=== PATIENT | male | born 1960 | race Caucasian/White ===

== ENCOUNTER 2017-03-04 11:32 | Emergency (ER) | payer OTHER ==
[2017-03-04 11:33] VITALS: BMI 34.0
[2017-03-04 12:03] VITALS: BP 119/81; PULSE 78; RESP 16; TEMP 97.3; O2SAT 98
--- NOTE | 2017-03-04 12:11 | C.PDOC ---
History Of Present Illness 56 year old male presents to the ED for evaluation of right-sided dental pain which began around 3 days ago. Patient states he does not have a dentist. He denies fever, chills, difficulty with breathing or swallowing. Time Seen by Provider: 03/04/17 11:44 Chief Complaint (Nursing): Dental Pain History Per: Patient, Family History/Exam Limitations: no limitations Onset/Duration Of Symptoms: Days (3) Current Symptoms Are (Timing): Still Present Quality: Positive for: "Pain" Additional History Per: Patient Past Medical History Reviewed: Historical Data, Nursing Documentation, Vital Signs Vital Signs: Last Vital Signs Temp 97.3 F L 03/04/17 11:43 Pulse 78 03/04/17 11:43 Resp 16 03/04/17 11:43 BP 119/81 03/04/17 11:43 Pulse Ox 98 03/04/17 13:43 - Medical History PMH: HTN, Hypercholesterolemia Surgical History: No Surg Hx - [facility] Procedures APPLICATION OF SPLINT (06/01/14) Family History: States: Unknown Family Hx - Social History Hx Alcohol Use: No Hx Substance Use: No - Immunization History Hx Tetanus Toxoid Vaccination: No Hx Influenza Vaccination: No Hx Pneumococcal Vaccination: No Review Of Systems Constitutional: Negative for: Fever, Chills ENT: Positive for: Mouth Pain (right-sided dental pain ) Respiratory: Negative for: Cough, Shortness of Breath, Wheezing Physical Exam - Physical Exam Appears: Non-toxic, No Acute Distress Skin: Normal Color, Warm, Dry Head: Atraumatic, Normacephalic Eye(s): bilateral: Normal Inspection, EOMI Nose: Normal Oral Mucosa: Moist Tongue: No Swelling Lips: No Swelling Teeth: Caries (right mandibular 1st molar ), Tender To Palpation (right mandibular 1st molar with filling) Gingiva: Normal Appearing, No Erythema, No Swelling Throat: Normal, No Erythema, No Exudate Neck: Normal ROM, Supple Chest: Symmetrical Cardiovascular: Rhythm Regular Respiratory: Normal Breath Sounds Extremity: Normal ROM Neurological/Psych: Normal Speech, Normal Cognition Gait: Steady ED Course And Treatment O2 Sat by Pulse Oximetry: 98 (on RA) Pulse Ox Interpretation: Normal Progress Note: Lidocaine 2% Viscous PO administered. On reasessment, patient is resting comfortably, showing no signs of distress, and reports an improvement in his symptoms. Patient is stable for discharge and is advised to follow up with dental care within 1-3 days for further evalation. Reassessment Condition: Improved Disposition - Disposition Referrals: [facility] [Outside] Disposition: HOME/ ROUTINE Disposition Time: 12:09 Condition: GOOD Additional Instructions: Vaya a hendrix mdico o la clnica en 1-3 lopez sin falta, para mas evaluacin. Lewes los medicamentos philippe indicado. Volver a la hoang de emergencia en cualquier momento si los sntomas persisten o empeoran. Prescriptions: Amoxicillin 875 mg PO BID #14 tablet Benzocaine 7.5% [Orajel] 7.5 gel MM TID #1 tube Instructions: Toothache (ED) Forms: [facility] (Dutch) - Clinical Impression Clinical Impression: Toothache - PA / FOUNDATION ENG[employer] / Resident Statement MD/DO has reviewed & agrees with the documentation as recorded. - Scribe Statement The provider has reviewed the documentation as recorded by the Scribe (Jadyn Koch) All medical record entries made by the Scribe were at my direction and personally dictated by me. I have reviewed the chart and agree that the record accurately reflects my personal performance of the history, physical exam, medical decision making, and the department course for this patient. I have also personally directed, reviewed, and agree with the discharge instructions and disposition.
== END 2017-03-04 12:46 | disposition home or self-care (01) ==
LOC: C.ER 11:32
DX: K08.89 Other specified disorders of teeth and supporting structures (principal)

== ENCOUNTER 2017-05-31 08:42 | Day surgery (SDC) | payer OTHER ==
[2017-05-31 09:13] VITALS: BMI 32.5
[2017-05-31 10:59] LABS: MEAN CORPUSCULAR HEMOGLOBIN 32.6 pg (27.0-31.0); MEAN CORPUSCULAR HGB CONC 34.7 g/dL (33.0-37.0); MEAN PLATELET VOLUME 9.6 fL (7.2-11.7); RED CELL DISTRIBUTION WIDTH 12.8 % (11.5-14.5); WHITE BLOOD COUNT 7.2 K/uL (4.8-10.8)
[2017-05-31] MEDS ORDERED: Lactated Ringer's 500 ML IV ONE ×2 (11:14)
[2017-05-31 11:18] LABS: BLOOD UREA NITROGEN 10 mg/dL (9-20); CALCIUM 8.1 mg/dl (8.6-10.4); CARBON DIOXIDE 24 mmol/L (22-30); CHLORIDE 103 mmol/L (98-107); GFR AFRICAN-AMERICAN > 60; GLUCOSE,RANDOM 136 mg/dL (75-110); POTASSIUM 4.1 mmol/L (3.6-5.2); SODIUM 136 mmol/L (132-148)
[2017-05-31] MEDS ORDERED: Propofol 10 mg/ml Inj (20 ML) ONE (11:21)
--- NOTE | 2017-05-31 11:22 | CP.SDSHP ---
Same Day Surgery H & P - History Proposed Procedure: Emergency EGD Pre-Op Diagnosis: Epigastric pain associated with dark, tarry stools intermittently for 2 months - Previous Medical/Surgical History Endocrine/Metabolic: Diabetes, Obesity Comments: Patient with dark/tarry stools following intermittent episodes of pain. Given Prilosec by PCP two weeks ago with relief of pain. hgb-15 at that time. Concern is for possible bleeding ulcer that will heal if endoscopy is delayed at this time. Patient awoke with pain in left arm after sleeping on it but denies any chest pain, heaviness, SOB or palpitations. Reports pain better by shaking out arm and has no pain after two hours of observation. EKG shows no ischemic changes. Plan to procede with EGD and patient will see PCP or go to ER for recurrence of pain. Relatively low cardiac risk. Had prostate biopsy several weeks ago for high PSA. Case discussed extensively with Dr Hatfield and family aware of risk and wishes to procede with EGD. Previous Surgical History: Prostate bx - Allergies Allergies: Allergies No Known Allergies Allergy (Verified 05/31/17 09:12) - Physical Exam Vital Signs: Vital Signs 05/31/17 10:00 Temperature 97.4 F L Pulse Rate 68 Respiratory 19 Rate Blood Pressure 126/82 O2 Sat by Pulse 100 Oximetry Mental Status: Alert & Oriented x3 Neuro: WNL Heart: WNL Lungs: WNL GI: WNL - Impression Impression: melena. epigastric pain r/o PUD with bleeding Pt. Evaluated Today:Candidate for Anesthesia & Procedure: Yes - Date & Time Date: 05/31/17 Time: 11:22 Short Stay Discharge - Short Stay Discharge Admitting Diagnosis/Reason for Visit: EPIGASTRIC PAIN, HEARTBURN Disposition: HOME/ ROUTINE
[2017-05-31] MEDS ORDERED: Pantoprazole 40 mg EC Tab PO STA (11:24)
[2017-05-31 13:04] VITALS: O2SAT 100
[2017-05-31 13:10] VITALS: BP 125/79; PULSE 61; RESP 21; TEMP 97.9
--- NOTE | 2017-06-01 15:40 | CARD ---
APPROVED REPORT EKG Measurement Heart [id number] <Conclusion> Normal sinus rhythm Normal ECG
== END 2017-05-31 12:45 | disposition home or self-care (01) ==
LOC: C.ENDO 08:42
PROVIDERS: ATTEND Internal Medicine Gastroenterology
DX: K29.70 Gastritis, unspecified, without bleeding (principal); K21.0 Gastro-esophageal reflux disease with esophagitis; B96.81 Helicobacter pylori [H. pylori] as the cause of diseases classified elsewhere
CPT/HCPCS: 36415; 43239; 80048; 82550; 82553; 82948; 84484; 85027; 88305; J2704; J3010; J7120

== ENCOUNTER 2017-08-10 10:19 | Emergency (ER) | payer OTHER ==
[2017-08-10 10:19] VITALS: BMI 32.5
[2017-08-10 10:30] VITALS: RESP 18; O2SAT 99
[2017-08-10] MEDS ORDERED: Lidocaine 5% Patch TD STA (11:05)
[2017-08-10] MEDS ORDERED: Lidocaine 5% Patch TD ONE (11:14)
--- NOTE | 2017-08-10 11:40 | C.PDOC ---
History Of Present Illness 57yo male with history of diabetes, high cholesterol, presents to ED for evaluation of right sided headache, radiating to his neck and worsening over the past 2 weeks. Patient denies any trauma or injuries, recent heavy lifting. Of note, patient had right shoulder surgery 1 year ago and is complaining of pain to his right shoulder as well. Patient states he has not been taking any medication for his pain but his has been massaging his neck with lotion every night; he also denies sleeping on a large pillow or sleeping abnormally. He has no other medical complaints. Time Seen by Provider: 08/10/17 10:45 Chief Complaint (Nursing): Back Pain History Per: Patient History/Exam Limitations: no limitations Onset/Duration Of Symptoms: Days, Persistent Current Symptoms Are (Timing): Still Present Quality: "Pain" Preceeding Symptoms: None Recent travel outside of the [place]: No Past Medical History Reviewed: Historical Data, Nursing Documentation, Vital Signs Vital Signs: Last Vital Signs Temp 98.0 F 08/10/17 10:25 Pulse 77 08/10/17 10:25 Resp 18 08/10/17 10:25 BP 125/84 08/10/17 10:25 Pulse Ox 99 08/10/17 12:15 - Medical History PMH: Arthritis (KNEES), Gastritis, HTN, Hypercholesterolemia Denies: Colonic Polyps, Fractures, Chronic Kidney Disease Surgical History: Endoscopy - [facility] Procedures APPLICATION OF SPLINT (06/01/14) Family History: States: Unknown Family Hx - Social History Hx Alcohol Use: No Hx Substance Use: No - Immunization History Hx Tetanus Toxoid Vaccination: No Hx Influenza Vaccination: Yes Hx Pneumococcal Vaccination: No Review Of Systems Except As Marked, All Systems Reviewed And Found Negative. Constitutional: Negative for: Fever, Chills Musculoskeletal: Positive for: Neck Pain (right), Shoulder Pain (right) Neurological: Positive for: Headache Physical Exam - Physical Exam Appears: Non-toxic Skin: Normal Color, Warm, Diaphoretic Head: Normacephalic Eye(s): bilateral: Normal Inspection Neck: Normal ROM, Paracervical Tenderness (right paracervical muscle spasm and tenderness), Supple Chest: Symmetrical Cardiovascular: Rhythm Regular Respiratory: Normal Breath Sounds, No Wheezing Neurological/Psych: Oriented x3, Normal Speech, Normal Cognition ED Course And Treatment O2 Sat by Pulse Oximetry: 99 (RA) Pulse Ox Interpretation: Normal Medical Decision Making Medical Decision Making: Impression: Muscle spasm Plan: -- Tylenol 9075 mg PO -- Motrin 600 mg PO -- Valium 5mg PO -- Lidoderm patch Time: 1130 Upon reevaluation, patient is now complaining a skin lesion to the right groin area which he noted this morning and states there was some drainage. He denies any pain to the area. Patient states he has similar lesion on the left groin area a couple weeks ago, which resolved of its own. Exam: 2-3 flaky papules noted to right inner thigh. Mild erythema but no discharge or tenderness. Non-vesicular. Time: 1210 Patient reports persistent pain, Tramadol 50 mg PO given. Disposition Counseled Patient/Family Regarding: Diagnosis, Need For Followup, Rx Given - Disposition Referrals: [facility] [Outside] Disposition: HOME/ ROUTINE Disposition Time: 13:21 Condition: STABLE Additional Instructions: Siga con hendrix doctor o en la clinica Prescriptions: diaZEpam [Valium] 5 mg PO TID #12 tab Ibuprofen [Motrin] 600 mg PO TID #15 tab traMADol/Acetaminophen [Ultracet 37.5/325 mg] 1 tab PO HS PRN #9 tab PRN Reason: pain Instructions: Muscle Spasms (DC) Forms: [facility] (Azeri), Gen Discharge Inst Azeri - POA Present On Arrival: None - Clinical Impression Clinical Impression: Muscle spasm - Scribe Statement The provider has reviewed the documentation as recorded by the Scribe (Viola Ryan) Provider Attestation: All medical record entries made by the Scribe were at my direction and personally dictated by me. I have reviewed the chart and agree that the record accurately reflects my personal performance of the history, physical exam, medical decision making, and the department course for this patient. I have also personally directed, reviewed, and agree with the discharge instructions and disposition.
[2017-08-10 13:25] VITALS: BP 131/79; PULSE 72; TEMP 98.3
== END 2017-08-10 13:54 | disposition home or self-care (01) ==
LOC: C.ER 10:19
DX: M62.838 Other muscle spasm (principal); E78.00 Pure hypercholesterolemia, unspecified; E11.9 Type 2 diabetes mellitus without complications; I10 Essential (primary) hypertension

== ENCOUNTER 2017-10-07 10:03 | Emergency (ER) | payer OTHER ==
[2017-10-07 10:03] VITALS: BMI 32.5
[2017-10-07 10:22] VITALS: RESP 18; TEMP 98.3
[2017-10-07] MEDS ORDERED: Oxycodone/Acetaminophen 5/325 mg Tab PO STA (11:13)
[2017-10-07] MEDS ORDERED: Oxycodone/Acetaminophen 5/325 mg Tab ONE (11:39)
--- NOTE | 2017-10-07 11:40 | C.PDOC ---
History Of Present Illness 57-year-old male, presents to the emergency department with complaints of lower back pain s/p mechanical slip and fall yesterday from two steps. Patient took Motrin with minimal relief. Denies numbness/weakness, nausea/vomiting, Time Seen by Provider: 10/07/17 10:43 Chief Complaint (Nursing): Back Pain History Per: Patient History/Exam Limitations: no limitations Past Medical History Reviewed: Historical Data, Nursing Documentation, Vital Signs Vital Signs: Last Vital Signs Temp 98.3 F 10/07/17 10:19 Pulse 78 10/07/17 12:07 Resp 18 10/07/17 12:07 BP 120/77 10/07/17 12:07 Pulse Ox 99 10/07/17 13:18 - Medical History PMH: Arthritis (KNEES), Gastritis, HTN, Hypercholesterolemia Denies: Colonic Polyps Surgical History: Endoscopy - [facility] Procedures APPLICATION OF SPLINT (06/01/14) Family History: States: No Known Family Hx - Social History Hx Alcohol Use: No Hx Substance Use: No - Immunization History Hx Tetanus Toxoid Vaccination: No Hx Influenza Vaccination: No Hx Pneumococcal Vaccination: No Review Of Systems Musculoskeletal: Positive for: Back Pain Neurological: Negative for: Weakness, Numbness Physical Exam - Physical Exam Appears: Non-toxic, No Acute Distress Skin: Normal Color, Warm, Dry, No Rash Head: Normacephalic Eye(s): bilateral: PERRL Nose: Normal Oral Mucosa: Moist Neck: Normal ROM Cardiovascular: Rhythm Regular, No Murmur Respiratory: Normal Breath Sounds, No Accessory Muscle Use Back: No CVA Tenderness, Paraspinal Tenderness (lumbar), No Straight Leg Raising , Other (no midline tenderness, (+) pulses at dp/pt bilateral ) Extremity: Normal ROM, No Deformity Neurological/Psych: Oriented x3, Normal Speech ED Course And Treatment O2 Sat by Pulse Oximetry: 99 (RA) Pulse Ox Interpretation: Normal - Other Rad LS SPINE Interpretation: slight decrease in height in anterior superior vertebral body. No gross fracture Medical Decision Making Medical Decision Making: Impression: Back pain Plan: * Percocet * XR L spine * Reassess and Disposition Disposition Counseled Patient/Family Regarding: Studies Performed, Diagnosis, Need For Followup, Rx Given - Disposition Referrals: Rebeca Concepcion MD [Staff Provider] - Disposition: HOME/ ROUTINE Disposition Time: 11:58 Condition: STABLE Additional Instructions: follow up with your doctor in 2 days call to make an appointment take medications as prescribed return to ER if symptoms worsens or progress Prescriptions: Acetaminophen/Codeine [Tylenol/Codeine 300 MG/30 MG] 1 tab PO Q6H PRN #12 tab PRN Reason: Pain, Severe (8-10) Cyclobenzaprine [Cyclobenzaprine HCl] 10 mg PO TID PRN #12 tab PRN Reason: Muscle Spasm Naproxen [Naprosyn] 500 mg PO BID PRN #16 tab PRN Reason: Pain, Moderate (4-7) Instructions: Low Back Pain (DC) Forms: Gen Discharge Inst Brazilian, [facility] (Brazilian), Work Excuse Print Language: SWAZI - Clinical Impression Clinical Impression: Low back pain - Scribe Statement The provider has reviewed the documentation as recorded by the Scribe (Isauro Martinez) All medical record entries made by the Scribe were at my direction and personally dictated by me. I have reviewed the chart and agree that the record accurately reflects my personal performance of the history, physical exam, medical decision making, and the department course for this patient. I have also personally directed, reviewed, and agree with the discharge instructions and disposition.
[2017-10-07 12:09] VITALS: BP 120/77; PULSE 78
[2017-10-07 13:14] VITALS: O2SAT 99
--- NOTE | 2017-10-07 13:19 | RAD ---
PROCEDURE: Radiographs of the Lumbar Spine. HISTORY: Back pain COMPARISON: No prior. FINDINGS: BONES: No acute compression fractures no retropulsed fragments. There is however apparent pars interarticularis defect at L5-S1 level. . Minor chronic anterior stature loss of the L4, L3 and L2 segments. . Minor chronic anterior stature loss of the T12 and T11 segments noted as well. DISC SPACES: Mild multilevel degenerative spondylosis. Changes include hypertrophic facets L5-S1 through the L2-L3 levels in decreasing order of severity. OTHER FINDINGS: None. IMPRESSION: No acute fractures. There are however of mild chronic anterior wedge deformities of several lumbar and lower thoracic segments. Pars interarticularis defect L5-S1 level.
== END 2017-10-07 12:09 | disposition home or self-care (01) ==
LOC: C.ER 10:03
DX: M54.5 Low back pain (principal)

== ENCOUNTER 2018-01-22 09:03 | Emergency (ER) | payer OTHER ==
[2018-01-22 09:17] VITALS: BMI 35.0
[2018-01-22 09:21] VITALS: TEMP 99.1
--- NOTE | 2018-01-22 10:30 | C.PDOC ---
History Of Present Illness 57 y/o male presents to ED for complaints of left groin and thigh pain that began 3 days ago. Denies trauma, known injury, dysuria, or abdominal pain. Time Seen by Provider: 01/22/18 09:24 Chief Complaint (Nursing): Groin Pain History Per: Patient History/Exam Limitations: no limitations Onset/Duration Of Symptoms: Hrs Current Symptoms Are (Timing): Still Present Recent travel outside of the [place]: No Past Medical History Reviewed: Historical Data, Nursing Documentation, Vital Signs Vital Signs: Last Vital Signs Temp 99.1 F 01/22/18 09:16 Pulse 77 01/22/18 13:12 Resp 16 01/22/18 13:12 BP 129/86 01/22/18 13:12 Pulse Ox 98 01/22/18 13:30 - Medical History PMH: Arthritis (KNEES), Gastritis, HTN, Hypercholesterolemia Surgical History: Endoscopy - [facility] Procedures APPLICATION OF SPLINT (06/01/14) Family History: States: Unknown Family Hx - Social History Hx Alcohol Use: No Hx Substance Use: No - Immunization History Hx Tetanus Toxoid Vaccination: No Hx Influenza Vaccination: No Hx Pneumococcal Vaccination: No Review Of Systems Except As Marked, All Systems Reviewed And Found Negative. Genitourinary: Positive for: Other (Left groin and thigh pain ) Physical Exam - Physical Exam Appears: Well, Non-toxic, No Acute Distress Skin: Normal Color, Warm, Dry, No Rash Head: Atraumatic, Normacephalic Eye(s): bilateral: Normal Inspection, PERRL, EOMI Oral Mucosa: Moist Neck: Supple Chest: Symmetrical, No Tenderness Cardiovascular: Rhythm Regular, No Murmur Respiratory: Normal Breath Sounds, No Decreased Breath Sounds, No Rales, No Rhonchi, No Wheezing Gastrointestinal/Abdominal: Normal Exam, Soft, No Tenderness, No Hernia Male Genital: Testicular Tenderness (And Tenderness to Left medial inner thigh ) , Other (Good femoral arteries; no signs of hernia ) Extremity: Normal ROM (Full ROM; Intact ), No Deformity Extremity: Bilateral: Atraumatic, Normal Color And Temperature, Normal ROM Pulses: Left Femoral: Normal, Right Femoral: Normal, Left Dorsalis Pedis: Normal , Right Dorsalis Pedis: Normal Neurological/Psych: Oriented x3, Normal Speech, Normal Motor, Normal Sensation, Normal Reflexes, Other (No focal deficits ) Gait: Steady ED Course And Treatment O2 Sat by Pulse Oximetry: 98 (RA) Pulse Ox Interpretation: Normal - Other Rad Hip/Pelvis X-Ray X-Ray: Viewed By Me, Read By Radiologist Interpretation: Pelvis and left hip two views. History: Hip pain. Comparison: None available. Findings: Left hip: Moderate narrowing of the left hip joint space with subchondral sclerosis. No evidence for acute displaced fracture or dislocation. Moderate narrowing of the right hip joint space with subchondral sclerosis. No evidence for acute displaced fracture or dislocation. Lobulated soft tissue calcifications seen medial to the proximal right femur. Sclerosis at the pubic symphysis suggestive for an osteitis pubis. Productive change at the iliac crests bilaterally. Impression: Moderate narrowing of the left hip joint space with subchondral sclerosis. No evidence for acute displaced fracture or dislocation. If pain persists, consider MRI. - CT Scan/US Testicular US Other Rad Studies (CT/US): Read By Radiologist, Radiology Report Reviewed CT/US Interpretation: Date of service: 01/22/2018. HISTORY: left testicle pain. TECHNIQUE: Realtime sonography through the scrotum with color and doppler flow. COMPARISON: None Available. FINDINGS: RIGHT TESTICLE: Measures 4.4 x 2.1 x 3.3 cm. Homogeneous echotexture. Normal flow. No mass. RIGHT EPIDIDYMIS: Normal size, morphology and vascularity. Two small epididymal cysts, 3 mm and 4 mm respectively in diameter. LEFT TESTICLE: Measures 4.6 x 2.2 x 3.1 cm. Homogeneous echotexture. No mass. Normal flow. LEFT EPIDIDYMIS: Normal size, morphology and vascularity. HYDROCELE: Minimal complex right hydrocele with low-level echoes. VARICOCELE: None. OTHER FINDINGS: None. IMPRESSION: No evidence of testicular torsion or epididymo- orchitis. Two small right epididymal cyst incidentally noted. Minimal complex right hydrocele, nonspecific. Medical Decision Making Medical Decision Making: Administered Motrin. Ordered blood work, hip X-Ray, and Testicular US. Impression: - Groin pain Disposition Counseled Patient/Family Regarding: Studies Performed, Diagnosis, Need For Followup, Rx Given - Disposition Referrals: Arturo Chiang MD [Staff Provider] - Disposition: HOME/ ROUTINE Disposition Time: 13:10 Condition: FAIR Additional Instructions: follow up with Dr. Chiang within 2 days call to make an appointment take medication as needed for pain return to ER if symptoms worsens or progress Prescriptions: Naproxen [Naprosyn] 500 mg PO BID PRN #16 tab PRN Reason: Pain, Moderate (4-7) Instructions: Hydrocele Forms: Gen Discharge Inst Macedonian, [facility] (Macedonian) Print Language: THAI - Clinical Impression Clinical Impression: Hydrocele - Scribe Statement The provider has reviewed the documentation as recorded by the Normaibraina Ramirez All medical record entries made by the Normaibraina were at my direction and personally dictated by me. I have reviewed the chart and agree that the record accurately reflects my personal performance of the history, physical exam, medical decision making, and the department course for this patient. I have also personally directed, reviewed, and agree with the discharge instructions and disposition.
--- NOTE | 2018-01-22 11:25 | US ---
Date of service: 01/22/2018 HISTORY: left testicle pain TECHNIQUE: Realtime sonography through the scrotum with color and doppler flow. COMPARISON: None Available. FINDINGS: RIGHT TESTICLE: Measures 4.4 x 2.1 x 3.3 cm. Homogeneous echotexture. Normal flow. No mass. RIGHT EPIDIDYMIS: Normal size, morphology and vascularity. Two small epididymal cysts, 3 mm and 4 mm respectively in diameter. LEFT TESTICLE: Measures 4.6 x 2.2 x 3.1 cm. Homogeneous echotexture. No mass. Normal flow. LEFT EPIDIDYMIS: Normal size, morphology and vascularity. HYDROCELE: Minimal complex right hydrocele with low-level echoes. VARICOCELE: None. OTHER FINDINGS: None. IMPRESSION: No evidence of testicular torsion or epididymo-orchitis. Two small right epididymal cyst incidentally noted. Minimal complex right hydrocele, nonspecific.
[2018-01-22 12:06] LABS: URINE BILIRUBIN NEGATIVE (NEGATIVE); URINE BLOOD NEGATIVE (NEGATIVE); URINE CLARITY Clear (Clear); URINE COLOR Yellow (YELLOW); URINE GLUCOSE (UA) 3+ mg/dL (Normal); URINE LEUKOCYTE ESTERASE NEG Leu/uL (Negative); URINE PROTEIN NEGATIVE (NEGATIVE); URINE UROBILINOGEN NORMAL mg/dL (0.2-1.0)
[2018-01-22 12:26] LABS: SQUAMOUS EPITHIAL 1 /hpf (0-5)
--- NOTE | 2018-01-22 12:43 | RAD ---
Pelvis and left hip two views History: Hip pain. Comparison: None available. Findings: Left hip: Moderate narrowing of the left hip joint space with subchondral sclerosis. No evidence for acute displaced fracture or dislocation. Moderate narrowing of the right hip joint space with subchondral sclerosis. No evidence for acute displaced fracture or dislocation. Lobulated soft tissue calcifications seen medial to the proximal right femur. Sclerosis at the pubic symphysis suggestive for an osteitis pubis. Productive change at the iliac crests bilaterally. Impression: Moderate narrowing of the left hip joint space with subchondral sclerosis. No evidence for acute displaced fracture or dislocation. If pain persists, consider MRI.
[2018-01-22 13:13] VITALS: BP 129/86; PULSE 77
[2018-01-22 13:30] VITALS: O2SAT 98
[2018-01-22] MEDS ORDERED: Oxycodone/Acetaminophen 5/325 mg Tab PO STA (13:42)
[2018-01-22] MEDS ORDERED: Oxycodone/Acetaminophen 5/325 mg Tab ONE (13:51)
[2018-01-22 13:53] VITALS: RESP 17
== END 2018-01-22 13:51 | disposition home or self-care (01) ==
LOC: C.ER 09:03
DX: N43.3 Hydrocele, unspecified (principal)

== ENCOUNTER 2018-03-06 06:34 | Day surgery (SDC) | payer OTHER ==
[2018-03-06] MEDS ORDERED: Lactated Ringer's 500 ML IV ONE (08:01)
[2018-03-06] MEDS ORDERED: Propofol 10 mg/ml Inj (20 ML) ONE (08:03)
--- NOTE | 2018-03-06 08:07 | CP.SDSHP ---
Same Day Surgery H & P - History Proposed Procedure: egd Pre-Op Diagnosis: Reflux esophagitis r/o EoE - Previous Medical/Surgical History Cardiac: Hypertension Endocrine/Metabolic: Diabetes, Obesity Misc: Other (Prostate Cancer on current XRT, Gerd, Hp gastritis, BPH) - Allergies Allergies: Allergies No Known Allergies Allergy (Verified 01/22/18 09:12) - Physical Exam Vital Signs: Vital Signs 03/06/18 06:59 Temperature 97.1 F L Pulse Rate 78 Respiratory 19 Rate Blood Pressure 121/81 O2 Sat by Pulse 100 Oximetry Mental Status: Alert & Oriented x3 Neuro: WNL Heart: WNL Lungs: WNL GI: WNL - Impression Impression: reflux esophagitis r/o EoE Pt. Evaluated Today:Candidate for Anesthesia & Procedure: Yes - Date & Time Date: 03/06/18 Time: 08:07 Short Stay Discharge - Short Stay Discharge Admitting Diagnosis/Reason for Visit: GERD, HELICOBACTER PYLORI, ACUTE GASTRITIS WITHOUT Disposition: HOME/ ROUTINE
[2018-03-06] MEDS ORDERED: Pantoprazole 40 mg EC Tab PO STA (08:15)
[2018-03-06 10:00] VITALS: BP 114/80; PULSE 74; RESP 16; TEMP 98; O2SAT 100
== END 2018-03-06 09:30 | disposition home or self-care (01) ==
LOC: C.ENDO 06:34
PROVIDERS: ATTEND Internal Medicine Gastroenterology
DX: K21.0 Gastro-esophageal reflux disease with esophagitis (principal); K29.50 Unspecified chronic gastritis without bleeding; K44.9 Diaphragmatic hernia without obstruction or gangrene; C61 Malignant neoplasm of prostate; E11.9 Type 2 diabetes mellitus without complications; E66.9 Obesity, unspecified; I10 Essential (primary) hypertension; N40.0 Benign prostatic hyperplasia without lower urinary tract symptoms
CPT/HCPCS: 43239; 82948; 88305; 88312; 88313; 88342; J2001; J2704; J7120

== ENCOUNTER 2018-05-15 07:04 | Day surgery (SDC) | payer OTHER ==
[2018-05-15] MEDS ORDERED: Lidocaine Hydrochloride 5 ML INJ ONE (08:24)
[2018-05-15] MEDS ORDERED: Propofol 10 mg/ml Inj (20 ML) ONE (08:24)
--- NOTE | 2018-05-15 08:25 | CP.SDSHP ---
Same Day Surgery H & P - History Proposed Procedure: colonoscopy Pre-Op Diagnosis: screening for colon cancer - Previous Medical/Surgical History Endocrine/Metabolic: Diabetes, Obesity, Other (H pylori gastritis, gerd) Misc: Other (Prostate cancer s/p XRT) - Allergies Allergies: Allergies No Known Allergies Allergy (Verified 01/22/18 09:12) - Physical Exam Vital Signs: Vital Signs 05/15/18 07:49 Temperature 96.9 F L Pulse Rate 70 Respiratory 20 Rate Blood Pressure 133/70 O2 Sat by Pulse 98 Oximetry Mental Status: Alert & Oriented x3 Neuro: WNL Heart: WNL Lungs: WNL GI: WNL - Impression Impression: screening for colon cancer Pt. Evaluated Today:Candidate for Anesthesia & Procedure: Yes - Date & Time Date: 05/15/18 Time: 08:25 Short Stay Discharge - Short Stay Discharge Admitting Diagnosis/Reason for Visit: MALIGNANT NEOPLASM OF PROSTATE Disposition: HOME/ ROUTINE
[2018-05-15 10:53] VITALS: TEMP 97
[2018-05-15 10:55] VITALS: O2SAT 99
[2018-05-15 11:01] VITALS: BP 123/65; PULSE 75; RESP 20
== END 2018-05-15 10:00 | disposition home or self-care (01) ==
LOC: C.ENDO 07:04
PROVIDERS: ATTEND Internal Medicine Gastroenterology
DX: Z12.11 Encounter for screening for malignant neoplasm of colon (principal); D12.6 Benign neoplasm of colon, unspecified; K21.9 Gastro-esophageal reflux disease without esophagitis; K57.30 Diverticulosis of large intestine without perforation or abscess without bleeding; E11.9 Type 2 diabetes mellitus without complications; C61 Malignant neoplasm of prostate; K29.00 Acute gastritis without bleeding; K21.0 Gastro-esophageal reflux disease with esophagitis; B96.81 Helicobacter pylori [H. pylori] as the cause of diseases classified elsewhere
CPT/HCPCS: 45380; 82948; 86677; 87338; 88305; J2704